=== PATIENT | female | born 1980 | race Caucasian/White ===

== ENCOUNTER 2024-08-13 15:48 | Outpatient (RCR) | payer MEDICAID, SELFPAY ==
--- NOTE | 2024-11-10 02:07 | CTCFLWUP_ITS ---
Patient: YOUSUF JAQUEZ : 1980 Page 5 of 7 FOLLOW UP NOTE DATE OF SERVICE: 08/13/2024 NAME: YOUSUF JAQUEZ ACCOUNT: [id number] : 1980 AGE: 43 INTERVAL HISTORY: No cpmplains ONCOLOGY HISTORY: DIAGNOSIS: Neutropenia since September 2023. Obesity. Asthma. Depression. Anxiety. Polycystic ovarian syndrome Hydrocephalus. REASON FOR TODAY?S VISIT: This is office follow-up visit. Ms. Jaquez is here at [facility]. Since last visit patient had CT scans as well as a bone marrow biopsy and various labs done. She is in the clinic today to have the results reviewed. She complains of mild pain at the site of the bone marrow biopsy. Other than that she seems to be doing well. Denies any cough, chest pain, abdominal pain or leg cramps. Ambulating well without any help. Neutropenia, unspecified [ICD10] D70.9; Iron deficiency anemia, unspecified [ICD10] D50.9 TREATMENT HISTORY: Care?Plan Start?Date Cycle Day Intent FERRlecit?she 10/07/2024 1 7 Maintenance HISTORY OF PRESENT ILLNESS: The patient is a 43-year-old female with neutropenia since September 2023. She recently moved to [place]. 10/10/2023: WBC 1.8, ANC 0.3, hemoglobin 14.3, MCV 94, platelets 203,000. 11/07/2023: WBC 2.1, ANC 0.4, hemoglobin 13.7, MCV 95, platelets 209,000. 01/23/2024: Ms. Jaquez had CT scan of the face and neck with IV contrast? 01/23/2024: MRI of the brain without contrast? 01/23/2024: WBC 2.14, ANC 0.81, hemoglobin 15.7, MCV 92.1, platelets 239,000. 02/07/2024: WBC 2.0, ANC 0.3, hemoglobin 14.2, MCV 93, platelets 262,000, creatinine 0.74, AST 16, ALT 18, T. bili 0.3, hepatitis panel negative, HIV test negative, iron saturation 14%, B12 391, folate 6.9. 03/05/2024: Peripheral smear done 03/05/2024: CT scan of the chest abdomen and pelvis with and without contrast 03/07/2024: Bone marrow biopsy and aspiration? OTHER MEDICAL HISTORY/CONDITIONS: Obesity Bronchitis/Asthma Depression Denies ?Clone Other Med Hx? FAMILY HISTORY: Cancer History:?Mat grandfather - prostate- dx58; Pat uncle - Bladder-dx 60 ?Clone Family Hx? 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 MEDICATIONS: 1. Advair HFA - 115-21 mcg/actuation 2 Puff(s) Twice a Day 2. albuterol sulfate - 90 mcg/actuation 1 Puff(s) Every 4 Hours 3. Claritin - 10 mg 1 tab Daily 4. fluoxetine - 40 mg 1 Capsule Daily 5. hydrocodone-acetaminophen - 5-325 mg 1 tab Daily 6. hydroxyzine HCl - 25 mg 1 tab Twice a Day 7. pregabalin - 75 mg 1 Capsule Daily 8. Wegovy - 0.5 mg/0.5 mL Weekly 9. Zofran - 4 mg 1 tab As directed?Palabra Meds? Medications Last Reconciled by Silvia Thao MA on 10/15/2024 ALLERGIES: Sulfa (Sulfonamide Antibiotics); Sulfa (Sulfonamide Antibiotics) REVIEW OF SYSTEMS: A complete 14-point review of systems was performed and is negative except as noted in interval history. PHYSICAL EXAMINATION: VITAL SIGNS: Temperature?98, B/P?114/73, Oxygen?Saturation?93% Weight?356?lbs PAIN: 8 - Very severe pain ECOG Performance Status: 0 - Asymptomatic and fully active GENERAL APPEARANCE: Appears well, in no apparent distress, appropriately interactive. HEENT: Normocephalic, no temporal wasting, normal conjunctiva, no scleral icterus, normal hearing, lips without lesions, neck normal range of motion. CARDIOVASCULAR: Not assessed. PULMONARY: Normal respiratory effort, no respiratory distress or use of accessory muscles, speaking in full sentences, no tachypnea. EXTREMITIES: No pedal edema or cyanosis. SKIN: Normal skin appearance. NEUROLOGIC: Alert and oriented x4. PSHYCHIATRIC: Appropriate affect, mood normal, behavior normal, intact thought and speech. LABORATORY DATA: I have personally reviewed and interpreted each of the patient?s relevant lab tests, abnormal findings are below: Date 09/03/24 10/28/24 ??WHITE?BLOOD?COUNT?(Thou/mm3) 2.0?L 2.2?L ??RED?BLOOD?COUNT?(Miln/mm3) 4.65 4.51 ??HEMOGLOBIN?(gm/dl) 14.2 13.8 ??HEMATOCRIT?(%) 42.2 39.8 ??PLATELET?COUNT?(Thou/mm3) 254 190 ??NEUTROPHILS?%,?AUTO?(%) 18?L 20?L ??LYMPH?%,?AUTO?(%) 63?H 64?H ??NEUTROPHILS,?AUTO?(Thou/mm3) 0.4?L 0.4?L ??GLUCOSE,RANDOM?(mg/dL) 114?H 91 ??BLOOD?UREA?NITROGEN?(mg/dL) 15 14 ??CREATININE?(mg/dL) 1.00 0.90 ??SODIUM?(mmol/L) 139 136 ??POTASSIUM?(mmol/L) 3.9 4.6 ??CHLORIDE?(mmol/L) 105 102 ??CrCl?(CandG)?(ml/min) 116.41 128.60 ??AST/SGOT?(Unit/L) 14 14 ??ALT/SGPT?(Unit/L) 15 12 ??ALKALINE?PHOSPHATASE?(Unit/L) 83 64 ??BILIRUBIN,?TOTAL?(mg/dL) 0.4 0.4 ??PROTEIN?TOTAL?(gm/dl) 6.8 6.8 ??ALBUMIN,?SERUM?(gm/dl) 4.5 4.2 ??GLOBULIN?(gm/dl) 2.3 2.6 ??ALBUMIN/GLOBULIN?RATIO 2.0 1.6 ??CALCIUM,?SERUM?(mg/dL) 9.6 9.1 ??CALCIUM?SERUM?(CORRECTED)?(mg/dL) 9.6 9.1 ASSESSMENT/PLAN: 1. Bone marrow biopsy and aspiration showed slightly hypocellular marrow with decreased myeloid population. No dysplastic features were identified. 2. CT scans did not show any hepatomegaly or splenomegaly. 3. Neutropenia since September 2023. 4. B12 and folate are in the normal range. HIV test is negative. 5. Hepatitis panel negative. 6. Obesity. 7. Asthma. 8. Depression. 9. Anxiety. 10. Polycystic ovarian syndrome 11. Hydrocephalus. 1. CBC, CMP, B12, folate, iron panel, ferritin, hepatitis panel, HIV test. 2. T-cell gene rearrangement study. 3. Flow cytometry with [facility] panel. 4. I will see her back in clinic in 4 weeks for follow-up. ORDERS: Order # Description [id number] + CBC with Auto Diff [id number] Vitamin B-12 + Folic Acid; Serum + Ferritin + Iron Panel + Reticulocyte Count + Lactate Dehydrogenase (LDH) [id number] CT Scan + Chest + Without Contrast [id number] CBC with Auto Diff [id number] MD Follow Up 4 Week [id number] [facility] [id number] MRI + With W/O Contrast [id number] MD Follow Up 2 Week [id number] Refer To: RETURN TO CLINIC: 4 weeks BILLING AND COMPLIANCE: I reviewed external records from providers outside my specialty as summarized above. I spent a total of 50 minutes on this patient?s care on the day of their visit excluding time spent related to any billed procedures. This time includes time spent with the patient as well as time spent documenting in the medical record, reviewing patients records and tests, obtaining history, placing orders, communicating with other healthcare professionals, counseling the patient, family or caregiver, and/or care coordination for the diagnoses above. Electronically Signed by: Sabino Cates MD T: 2:04 AM CC: PCP: Referring: Juan David Caraballo This document was completed utilizing speech recognition software. Grammatical errors, random word insertions, pronoun errors, and incomplete sentences are an occasional consequence of this system due to software limitations, ambient noise, and hardware issues. Any formal questions or concerns about the content, text or information contained within the body of this dictation should be directly addressed to the provider for clarification.
== END 2024-08-23 23:59 | disposition home or self-care (01) ==
LOC: SCTC 15:48
PROVIDERS: PCP Student in an Organized Health Care Education/Training Program; Referring Provider Student in an Organized Health Care Education/Training Program; Visit Provider Internal Medicine Hematology & Oncology
DX: D70.9 Neutropenia, unspecified (principal); D75.89 Other specified diseases of blood and blood-forming organs; E66.9 Obesity, unspecified; J45.909 Unspecified asthma, uncomplicated; F32.A Depression, unspecified; F41.9 Anxiety disorder, unspecified; E28.2 Polycystic ovarian syndrome; G91.9 Hydrocephalus, unspecified
CPT/HCPCS: 99212; G0463

== ENCOUNTER → 2024-09-03 | Outpatient (CLI) | payer MEDICAID, SELFPAY ==
[2024-09-03 15:36] LABS: Basophils % (Auto) 1 % (0-2.5); Eosinophils # (Auto) 0.1 Thou/mm3 (0.0-0.5); Eosinophils % (Auto) 7 % (0-10); Hematocrit 42.2 % (36.0-46.0); Hemoglobin 14.2 g/dL (12.0-16.0); Immature Granulocytes % (Auto) 1 % (0-0); Immature Granulocytes Auto 0.01 Thou/mm3 (0.00-0.00); Lymphocytes # (Auto) 1.3 Thou/mm3 (1.0-4.8); Lymphocytes % (Auto) 63 % (10-50); Mean Corpuscular HGB Conc 33.6 g/dl (31.0-37.0); Mean Corpuscular Hemoglobin 30.5 pg (25.0-35.0); Mean Corpuscular Volume 91 fL (80-100); Monocytes # (Auto) 0.2 Thou/mm3 (0.0-0.8); Monocytes % (Auto) 10 % (0-12); Neutrophils # (Auto) 0.4 Thou/mm3 (1.8-7.7); Neutrophils % (Auto) 18 % (37-80); Nucleated Red Blood Cell % 0 /100 WBC (0); Platelet Count 254 Thou/mm3 (140-440); RDW Standard Deviation 40.9 fL (36.4-46.3); Red Blood Count 4.65 Miln/mm3 (4.00-5.20)
[2024-09-03 15:58] LABS: Alanine Aminotransferase 15 U/L (10-49); Albumin, Serum 4.5 gm/dL (3.5-5.0); Alkaline Phosphatase 83 U/L (46-116); Anion Gap 4 (7-16); BUN/Creatinine Ratio 15 Ratio (12-20); Bilirubin,Total 0.4 mg/dL (0.3-1.2); Blood Urea Nitrogen 15 mg/dL (9-23); Calcium 9.6 mg/dL (8.3-10.6); Calcium (Corrected) 9.6 mg/dL (8.5-10.1); Carbon Dioxide 30.1 mMol/L (20.0-31.0); Chloride 105 mMol/L (98-107); Globulin 2.3 gm/dL (2.3-3.5); Glucose 114 mg/dL (74-106); Osmolality,Calculated 279 (275-295); Potassium 3.9 mMol/L (3.4-5.1); Sodium 139 mMol/L (136-145); Total Protein 6.8 gm/dL (5.7-8.2); eGFR > 60 See Note
[2024-09-03 16:10] LABS: Aspartate Amino Transferase 14 U/L (0-34)
[2024-09-03 17:16] LABS: Path Review Blood Smear Sent to Pathologist
== END | disposition home or self-care (01) ==
LOC: SLAB 09-05 07:29
PROVIDERS: Referring Provider Internal Medicine Hematology & Oncology; Visit Provider Internal Medicine Hematology & Oncology
DX: D70.9 Neutropenia, unspecified (principal)
CPT/HCPCS: 36415; 80053; 85025

== ENCOUNTER 2024-09-10 15:03 | Outpatient (RCR) | payer MEDICAID, SELFPAY ==
--- NOTE | 2024-09-22 20:18 | CTCFLWUP_ITS ---
Patient: YOUSUF JAQUEZ : 1980 Page 5 of 7 FOLLOW UP NOTE DATE OF SERVICE: 09/10/2024 NAME: YOUSUF JAQUEZ ACCOUNT: [id number] : 1980 AGE: 43 INTERVAL HISTORY: ONCOLOGY HISTORY: DIAGNOSIS: Neutropenia, unspecified [ICD10] D70.9; Iron deficiency anemia, unspecified [ICD10] D50.9 DATE OF DIAGNOSIS: STAGE/TNM: TREATMENT HISTORY: Care?Plan Start?Date Cycle Day Intent FERRlecit?she 09/10/2024 1 7 Maintenance HISTORY OF PRESENT ILLNESS: The patient is a 43-year-old female with neutropenia since September 2023. She recently moved to [place]. 10/10/2023: WBC 1.8, ANC 0.3, hemoglobin 14.3, MCV 94, platelets 203,000. 11/07/2023: WBC 2.1, ANC 0.4, hemoglobin 13.7, MCV 95, platelets 209,000. 01/23/2024: Ms. Jaquez had CT scan of the face and neck with IV contrast? 01/23/2024: MRI of the brain without contrast? 01/23/2024: WBC 2.14, ANC 0.81, hemoglobin 15.7, MCV 92.1, platelets 239,000. 02/07/2024: WBC 2.0, ANC 0.3, hemoglobin 14.2, MCV 93, platelets 262,000, creatinine 0.74, AST 16, ALT 18, T. bili 0.3, hepatitis panel negative, HIV test negative, iron saturation 14%, B12 391, folate 6.9. 03/05/2024: Peripheral smear done 03/05/2024: CT scan of the chest abdomen and pelvis with and without contrast 03/07/2024: Bone marrow biopsy and aspiration? 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 Advair HFA - 115-21 mcg/actuation 2 Puff(s) Twice a Day 2. albuterol sulfate - 90 mcg/actuation 1 Puff(s) Every 4 Hours 3. Claritin - 10 mg 1 tab Daily 4. fluoxetine - 40 mg 1 Capsule Daily 5. hydroxyzine HCl - 25 mg 1 tab Twice a Day 6. pregabalin - 75 mg 1 Capsule Daily 7. Wegovy - 0.5 mg/0.5 mL Weekly 8. Zofran - 4 mg 1 tab As directed Medications Last Reconciled by Jade Berry MA on 09/10/2024 ALLERGIES: Sulfa (Sulfonamide Antibiotics); Sulfa (Sulfonamide Antibiotics) REVIEW OF SYSTEMS: A complete 14-point review of systems was performed and is negative except as noted in interval history. PHYSICAL EXAMINATION: VITAL SIGNS: PAIN: 7 - Between severe and very severe pain GENERAL APPEARANCE: Appears well, in no apparent distress, appropriately interactive. HEENT: Normocephalic, no temporal wasting, normal conjunctiva, no scleral icterus, normal hearing, lips without lesions, neck normal range of motion. CARDIOVASCULAR: Not assessed. PULMONARY: Normal respiratory effort, no respiratory distress or use of accessory muscles, speaking in full sentences, no tachypnea. EXTREMITIES: No pedal edema or cyanosis. SKIN: Normal skin appearance. NEUROLOGIC: Alert and oriented x4. PSHYCHIATRIC: Appropriate affect, mood normal, behavior normal, intact thought and speech. LABORATORY DATA: I have personally reviewed and interpreted each of the patient?s relevant lab tests, abnormal findings are below: Date 09/03/24 ??GLUCOSE,RANDOM?(mg/dL) 114?H ??BLOOD?UREA?NITROGEN?(mg/dL) 15 ??CREATININE?(mg/dL) 1.00 ??SODIUM?(mmol/L) 139 ??POTASSIUM?(mmol/L) 3.9 ??CHLORIDE?(mmol/L) 105 ??CrCl?(CandG)?(ml/min) 116.41 ??AST/SGOT?(Unit/L) 14 ??ALT/SGPT?(Unit/L) 15 ??ALKALINE?PHOSPHATASE?(Unit/L) 83 ??BILIRUBIN,?TOTAL?(mg/dL) 0.4 ??PROTEIN?TOTAL?(gm/dl) 6.8 ??ALBUMIN,?SERUM?(gm/dl) 4.5 ??GLOBULIN?(gm/dl) 2.3 ??ALBUMIN/GLOBULIN?RATIO 2.0 ??CALCIUM,?SERUM?(mg/dL) 9.6 ??CALCIUM?SERUM?(CORRECTED)?(mg/dL) 9.6 ASSESSMENT/PLAN: 1. Bone marrow biopsy and aspiration showed slightly hypocellular marrow with decreased myeloid population. No dysplastic features were identified.recommenadation was ot check for [facility] CT scans did not show any hepatomegaly or splenomegaly. Neutropenia since September 2023. B12 and folate are in the normal range. HIV test is negative. Hepatitis panel negative. Will send for cd55 and cd59 . 2. Obesity. 3. Asthma. 4. Depression. 5. Anxiety. 6. Polycystic ovarian syndrome 7. Hydrocephalus. ORDERS: Cbc,cmp,flow for pnh ,cd55,cd59 RETURN TO CLINIC: Follow with DR Fofana 4 weeks BILLING AND COMPLIANCE: I reviewed external records from providers outside my specialty as summarized above. I spent a total of 50 minutes on this patient?s care on the day of their visit excluding time spent related to any billed procedures. This time includes time spent with the patient as well as time spent documenting in the medical record, reviewing patients records and tests, obtaining history, placing orders, communicating with other healthcare professionals, counseling the patient, family or caregiver, and/or care coordination for the diagnoses above. Electronically Signed by: Sabino Cates MD T: 8:15 PM CC: PCP: Referring: Rob Mckeon This document was completed utilizing speech recognition software. Grammatical errors, random word insertions, pronoun errors, and incomplete sentences are an occasional consequence of this system due to software limitations, ambient noise, and hardware issues. Any formal questions or concerns about the content, text or information contained within the body of this dictation should be directly addressed to the provider for clarification.
== END 2024-09-20 23:59 | disposition home or self-care (01) ==
LOC: SCTC 15:03
PROVIDERS: Referring Provider Internal Medicine Hematology & Oncology; Visit Provider Internal Medicine Hematology & Oncology
DX: D70.9 Neutropenia, unspecified (principal); E66.9 Obesity, unspecified; J45.909 Unspecified asthma, uncomplicated; F32.A Depression, unspecified; F41.9 Anxiety disorder, unspecified; E28.2 Polycystic ovarian syndrome; G91.9 Hydrocephalus, unspecified
CPT/HCPCS: 99212; G0463

== ENCOUNTER 2024-10-15 14:15 | Outpatient (RCR) | payer MEDICAID, SELFPAY ==
--- NOTE | 2024-11-20 07:24 | CTCFLWUP_ITS ---
Patient: YOUSUF PRETTY : 1980 Page 2 of 3 FOLLOW UP NOTE DATE OF SERVICE: 10/15/2024 NAME: YOUSUF PRETTY ACCOUNT: [id number] : 1980 AGE: 43 INTERVAL HISTORY: No new complains ONCOLOGY HISTORY: DIAGNOSIS: Neutropenia, unspecified [ICD10] D70.9; Iron deficiency anemia, unspecified [ICD10] D50.9 Neutropenia, unspecified [ICD10] D70.9; Iron deficiency anemia, unspecified [ICD10] D50.9 HISTORY OF PRESENT ILLNESS: 43-year-old female 10/10/2023: WBC 1.8, ANC 0.3, hemoglobin 14.3, MCV 94, platelets 203,000. 11/07/2023: WBC 2.1, ANC 0.4, hemoglobin 13.7, MCV 95, platelets 209,000. 01/23/2024: Ms. Pretty had CT scan of the face and neck with IV contrast? 01/23/2024: Ms. Pretty had CT scan of the face and neck with IV contrast? 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 Advair HFA - 115-21 mcg/actuation 2 Puff(s) Twice a Day 2. albuterol sulfate - 90 mcg/actuation 1 Puff(s) Every 4 Hours 3. Claritin - 10 mg 1 tab Daily 4. fluoxetine - 40 mg 1 Capsule Daily 5. hydrocodone-acetaminophen - 5-325 mg 1 tab Daily 6. hydroxyzine HCl - 25 mg 1 tab Twice a Day 7. pregabalin - 75 mg 1 Capsule Daily 8. Wegovy - 0.5 mg/0.5 mL Weekly 9. Zofran - 4 mg 1 tab As directed?Palabra Meds? Medications Last Reconciled by Silvia Thao MA on 10/15/2024 ALLERGIES: Sulfa (Sulfonamide Antibiotics); Sulfa (Sulfonamide Antibiotics) REVIEW OF SYSTEMS: A complete 14-point review of systems was performed and is negative except as noted in interval history. PHYSICAL EXAMINATION:?CloneBlock PE? VITAL SIGNS: PAIN: 0 - No pain The patient appeared well-nourished, alert, and in no apparent distress via video conferencing. LABORATORY DATA: I have personally reviewed and interpreted each of the patient?s relevant lab tests, abnormal findings are below: Date 09/03/24 10/28/24 11/11/24 ??WHITE?BLOOD?COUNT?(Thou/mm3) ? 2.2?L 2.8?L ??RED?BLOOD?COUNT?(Miln/mm3) ? 4.51 4.46 ??HEMOGLOBIN?(gm/dl) ? 13.8 13.7 ??HEMATOCRIT?(%) ? 39.8 38.7 ??PLATELET?COUNT?(Thou/mm3) ? 190 199 ??NEUTROPHILS?%,?AUTO?(%) ? 20?L 33?L ??LYMPH?%,?AUTO?(%) ? 64?H 53?H ??NEUTROPHILS,?AUTO?(Thou/mm3) ? 0.4?L 0.9?L ??GLUCOSE,RANDOM?(mg/dL) 114?H 91 ? ??BLOOD?UREA?NITROGEN?(mg/dL) 15 14 ? ??CREATININE?(mg/dL) 1.00 0.90 ? ??SODIUM?(mmol/L) 139 136 ? ??POTASSIUM?(mmol/L) 3.9 4.6 ? ??CHLORIDE?(mmol/L) 105 102 ? ??CrCl?(CandG)?(ml/min) 116.41 128.60 ? ??AST/SGOT?(Unit/L) 14 14 ? ??ALT/SGPT?(Unit/L) 15 12 ? ??ALKALINE?PHOSPHATASE?(Unit/L) 83 64 ? ??BILIRUBIN,?TOTAL?(mg/dL) 0.4 0.4 ? ??PROTEIN?TOTAL?(gm/dl) 6.8 6.8 ? ??ALBUMIN,?SERUM?(gm/dl) 4.5 4.2 ? ??GLOBULIN?(gm/dl) 2.3 2.6 ? ??ALBUMIN/GLOBULIN?RATIO 2.0 1.6 ? ??CALCIUM,?SERUM?(mg/dL) 9.6 9.1 ? ??CALCIUM?SERUM?(CORRECTED)?(mg/dL) 9.6 9.1 ? ASSESSMENT/PLAN:?Bandar Cates Assessment/Plan? Bone marrow biopsy and aspiration showed slightly hypocellular marrow with decreased myeloid population. No dysplastic features were identified.recommenadation was ot check for [facility] CT scans did not show any hepatomegaly or splenomegaly. Neutropenia since September 2023. B12 and folate are in the normal range. HIV test is negative. Hepatitis panel negative. Will send for cd55 and cd59 . Obesity. Asthma. Depression. Anxiety. Polycystic ovarian syndrome Hydrocephalus. ORDERS: Cbc,cmp,flow for pnh ,cd55,cd59?labs not completed ORDERS: Order # Description [id number] [facility] [place] Heme [id number] MRI + With W/O Contrast [id number] Follow Up 2 Week RETURN TO CLINIC: BILLING AND COMPLIANCE: I reviewed external records from providers outside my specialty as summarized above. I spent a total of 50 minutes on this patient?s care on the day of their visit excluding time spent related to any billed procedures. This time includes time spent with the patient as well as time spent documenting in the medical record, reviewing patients records and tests, obtaining history, placing orders, communicating with other healthcare professionals, counseling the patient, family or caregiver, and/or care coordination for the diagnoses above. Electronically Signed by: Sabino Cates MD T: 7:21 AM CC: PCP: Referring: Sabino Cates This document was completed utilizing speech recognition software. Grammatical errors, random word insertions, pronoun errors, and incomplete sentences are an occasional consequence of this system due to software limitations, ambient noise, and hardware issues. Any formal questions or concerns about the content, text or information contained within the body of this dictation should be directly addressed to the provider for clarification.
== END 2024-10-21 23:59 | disposition home or self-care (01) ==
LOC: SCTC 14:15
PROVIDERS: PCP Student in an Organized Health Care Education/Training Program; Referring Provider Internal Medicine Hematology & Oncology; Visit Provider Internal Medicine Hematology & Oncology
DX: D70.9 Neutropenia, unspecified (principal); D50.9 Iron deficiency anemia, unspecified; E66.9 Obesity, unspecified; J45.909 Unspecified asthma, uncomplicated; F32.A Depression, unspecified; F41.9 Anxiety disorder, unspecified; E28.2 Polycystic ovarian syndrome; G91.9 Hydrocephalus, unspecified
CPT/HCPCS: 99212; J2916; J7050; G0463

== ENCOUNTER 2024-11-11 14:44 | Outpatient (RCR) | payer MEDICAID, SELFPAY ==
[2024-10-28 14:40] LABS: Basophils % (Auto) 1 % (0-2.5); Eosinophils # (Auto) 0.2 Thou/mm3 (0.0-0.5); Eosinophils % (Auto) 7 % (0-10); Hematocrit 39.8 % (36.0-46.0); Hemoglobin 13.8 g/dL (12.0-16.0); Immature Granulocytes % (Auto) 0 % (0-0); Lymphocytes # (Auto) 1.4 Thou/mm3 (1.0-4.8); Lymphocytes % (Auto) 64 % (10-50); Mean Corpuscular HGB Conc 34.7 g/dl (31.0-37.0); Mean Corpuscular Hemoglobin 30.6 pg (25.0-35.0); Mean Corpuscular Volume 88 fL (80-100); Monocytes # (Auto) 0.2 Thou/mm3 (0.0-0.8); Monocytes % (Auto) 10 % (0-12); Neutrophils # (Auto) 0.4 Thou/mm3 (1.8-7.7); Neutrophils % (Auto) 20 % (37-80); Nucleated Red Blood Cell % 0 /100 WBC (0); Platelet Count 190 Thou/mm3 (140-440); RDW Standard Deviation 41.1 fL (36.4-46.3); Red Blood Count 4.51 Miln/mm3 (4.00-5.20)
[2024-10-28 15:05] LABS: White Blood Count 2.2 Thou/mm3 (3.6-11.0)
[2024-10-28 15:21] LABS: Alanine Aminotransferase 12 U/L (10-49); Albumin, Serum 4.2 gm/dL (3.5-5.0); Albumin/Globulin Ratio 1.6 (1.2-2.2); Alkaline Phosphatase 64 U/L (46-116); Anion Gap 7 (7-16); Aspartate Amino Transferase 14 U/L (0-34); BUN/Creatinine Ratio 16 Ratio (12-20); Bilirubin,Total 0.4 mg/dL (0.3-1.2); Blood Urea Nitrogen 14 mg/dL (9-23); Calcium 9.1 mg/dL (8.3-10.6); Calcium (Corrected) 9.1 mg/dL (8.5-10.1); Carbon Dioxide 26.9 mMol/L (20.0-31.0); Chloride 102 mMol/L (98-107); Creatinine (Component) 0.9 mg/dL (0.6-1.3); Globulin 2.6 gm/dL (2.3-3.5); Glucose 91 mg/dL (74-106); Osmolality,Calculated 272 (275-295); Potassium 4.6 mMol/L (3.4-5.1); Sodium 136 mMol/L (136-145); Total Protein 6.8 gm/dL (5.7-8.2); eGFR > 60 See Note
[2024-11-11 15:43] LABS: Basophils % (Auto) 1 % (0-2.5); Eosinophils # (Auto) 0.2 Thou/mm3 (0.0-0.5); Eosinophils % (Auto) 5 % (0-10); Hematocrit 38.7 % (36.0-46.0); Hemoglobin 13.7 g/dL (12.0-16.0); Immature Granulocytes % (Auto) 0 % (0-0); Lymphocytes # (Auto) 1.5 Thou/mm3 (1.0-4.8); Lymphocytes % (Auto) 53 % (10-50); Mean Corpuscular HGB Conc 35.4 g/dl (31.0-37.0); Mean Corpuscular Hemoglobin 30.7 pg (25.0-35.0); Mean Corpuscular Volume 87 fL (80-100); Monocytes # (Auto) 0.2 Thou/mm3 (0.0-0.8); Monocytes % (Auto) 8 % (0-12); Neutrophils # (Auto) 0.9 Thou/mm3 (1.8-7.7); Neutrophils % (Auto) 33 % (37-80); Nucleated Red Blood Cell % 0 /100 WBC (0); Platelet Count 199 Thou/mm3 (140-440); RDW Standard Deviation 40.2 fL (36.4-46.3); Red Blood Count 4.46 Miln/mm3 (4.00-5.20)
[2024-11-11 15:47] LABS: White Blood Count 2.8 Thou/mm3 (3.6-11.0)
== END 2024-11-20 23:59 | disposition home or self-care (01) ==
LOC: SCTC 14:44
PROVIDERS: PCP Internal Medicine Hematology; Referring Provider Internal Medicine Hematology; Visit Provider Internal Medicine Hematology & Oncology
DX: D70.9 Neutropenia, unspecified (principal); D50.9 Iron deficiency anemia, unspecified
CPT/HCPCS: 80053; 85025; 96372; J2916; J7050; Q5101

== ENCOUNTER 2024-11-27 15:02 | Outpatient (RCR) | payer MEDICAID, SELFPAY ==
--- NOTE | 2024-11-27 15:49 | CTCCONSULT_ITS ---
[facility] [address], [place] [address] Consultation Note Date: 11/27/2024 MR#: [id number] Name: YOUSUF JAQUEZ : 1980 Dx: D50.9 Iron deficiency anemia, unspecified Attending physician. Rob Mckeon Referring physician Nicolette Cates MD Reason for consultation. Patient with significant pain symptoms requesting to see palliative care physician. History of Present Illness: Patient a 43-year-old lady with multiple comorbidities including obesity bronchitis asthma depression currently seeing Dr. Ag for unspecified neutropenia and iron deficiency anemia . CT chest abdomen pelvis 03/05/2024 small noncalcified pulmonary nodules no mediastinal a denopathy no pneumonia no acute process in abdomen or pelvis. [facility] imaging studies performed 02-13 maxillofacial revealing moderate inflammatory changes paranasal sinuses hydrocephalus mildly prominent left axillary nodes asymmetrical thickening left larynx. MRI of the brain 02-13 moderate dilatation of ventricles with given history of hydrocephalus. Patient has tried ?tons? of OTC meds including Advil Tylenol aspirin without any relief. Even tried muscle relaxants that were initially prescribed by somebody else without relief. Past medical history. History obesity asthma depression anxiety polycystic ovarian syndrome hydrocephalus. Medications. Advair albuterol Claritin fluoxetine [place] 5 1 daily hydroxyzine 25 mg 1 twice daily pregabalin 75 mg 1 daily Zofran Wegovy Social History: Patient caregiver of her father living in [place]; never has been Review of Systems: Physical Exam: General: Obese lady in no acute distress I was not able to do an exam when she walked out. Assessment:1. Patient with unspecified neutropenia and iron deficiency anemia. 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 2. Chronic pain for the past 2 years, no significant findings on radiographs to account for the pain. 3. Was upset at not getting any controlled substances. Has tried multiple OTC meds including NSAIDs Tylenol and muscle relaxants without relief. 4. Left in apparent anger, when I sounded reluctant to give her controlled medications. Electronically signed by: Case Brown MD, DABR 11/27/2024 3:47 PM
== END 2024-12-21 23:59 | disposition home or self-care (01) ==
LOC: SCTC 15:02
PROVIDERS: PCP Student in an Organized Health Care Education/Training Program; Referring Provider Internal Medicine Hematology & Oncology; Visit Provider Radiology Therapeutic Radiology
DX: D50.9 Iron deficiency anemia, unspecified (principal); D70.9 Neutropenia, unspecified; G89.29 Other chronic pain
CPT/HCPCS: 99213; G0463